=== PATIENT | male | born 1995 | race Caucasian/White ===

== ENCOUNTER 2019-12-24 03:48 | Emergency (ER) | payer SELFPAY ==
[2019-12-24] MEDS ORDERED: ONDANSETRON HCL INJ/PF 4 MG/2 ML SDV IV ONE (04:32)
[2019-12-24] MEDS ORDERED: NORMAL SALINE 1000 ML 1,000 ML IV PRN (04:32)
[2019-12-24 05:11] LABS: ABSOLUTE LYMPHOCYTES (AUTO) 0.5 10^3/uL (0.5-4.7); ABSOLUTE MONOCYTES (AUTO) 0.6 10^3/uL (0.1-1.4); ABSOLUTE NEUT (AUTO) 7.1 10^3/uL (1.7-8.2); BASOPHILS % (AUTO) 0.3 % (0-2); EOSINOPHILS % (AUTO) 0.1 % (0-6); HEMATOCRIT 45.8 % (37.9-51.0); HEMOGLOBIN 16.2 g/dL (13.5-17.0); MEAN CORPUSCULAR HEMOGLOBIN 30.3 pg (27.0-33.4); MEAN CORPUSCULAR HGB CONC 35.2 g/dL (32.0-36.0); MEAN CORPUSCULAR VOLUME 86 fl (80-97); MONOCYTES % (AUTO) 7.4 % (3-13); PLATELET COUNT 233 10^3/uL (150-450); RED BLOOD COUNT 5.33 10^6/uL (4.35-5.55); RED CELL DISTRIBUTION WIDTH 13.5 % (11.5-14.0); SEGMENTED NEUTROPHILS % (AUTO) 86.2 % (42-78); TOTAL CELLS COUNTED % (AUTO) 100 %; WHITE BLOOD COUNT 8.2 10^3/uL (4.0-10.5)
[2019-12-24 05:17] LABS: APPEARANCE,URINE CLEAR; BILIRUBIN,URINE NEGATIVE (NEGATIVE); COLOR,URINE YELLOW; GLUCOSE, URINE NEGATIVE (NEGATIVE); KETONES,URINE 20 mg/dL (NEGATIVE); LEUKOCYTE ESTERASE,URINE NEGATIVE (NEGATIVE); NITRITE,URINE NEGATIVE (NEGATIVE); PROTEIN,URINE NEGATIVE (NEGATIVE); URINE SPECIFIC GRAVITY 1.026; UROBILINOGEN,URINE NEGATIVE mg/dL (<2.0)
[2019-12-24] MEDS ORDERED: NORMAL SALINE 1000 ML 1,000 ML IV ONE ×2 (05:20→08:18)
[2019-12-24] MEDS ORDERED: KETOROLAC TROMETHAMINE INJ/PF 30 MG/1 ML SDV IV ONE (05:21)
--- NOTE | 2019-12-24 05:25 | ER Document Report ---
Entered by BHUMIKA GANDHI SCRIBE 12/24/19 0523 Acting as scribe for:EUN CLARKE IV, MD ED Medical Screen (RME) - General Chief Complaint: Abdominal Pain Stated Complaint: NAUSEA, VOMITING, DIARRHEA Mode of Arrival: Ambulatory Information source: Patient Notes: This 24 year old male patient with no significant past medical history presents to the ED today with complaints of nausea/vomiting/diarrhea with associated generalized abdominal pain for the past x3 days. Patient states that he had only x1 episode of emesis, but notes feeling nauseous since onset. He also reports difficulty sleeping due to the severe abdominal pain. Denies history of abdominal surgeries. Denies sick contacts. I have treated and performed a rapid initial assessment of this patient. A comprehensive ED assessment and evaluation of the patient, analysis of test results and completion of medical decision making process will be conducted by additional ED providers. - Related Data Allergies/Adverse Reactions: No Known Allergies Allergy (Unverified 12/24/19 04:12) Past Medical History - Social History Chew tobacco use (# tins/day): No Frequency of alcohol use: Rare Drug Abuse: None Physical Exam - Vital signs Vitals: Temp Pulse Resp BP Pulse Ox 100.1 F 115 H 20 139/68 H 97 12/24/19 03:55 12/24/19 03:55 12/24/19 03:55 12/24/19 03:55 12/24/19 03:55 - Abdominal Inspection: Normal Distension: No distension Bowel sounds: Normal Tenderness: Nontender - Abdomen soft Organomegaly: No organomegaly Course - Vital Signs Vital signs: Temp Pulse Resp BP Pulse Ox 100.1 F 115 H 20 139/68 H 97 12/24/19 03:55 12/24/19 03:55 12/24/19 03:55 12/24/19 03:55 12/24/19 03:55 - Laboratory Result Diagrams: 12/24/19 04:27 12/24/19 04:27 Laboratory results interpreted by me: 12/24/19 12/24/19 04:27 04:27 Lymph % (Auto) 6.0 L Seg Neutrophils % 86.2 H Urine Ketones 20 H Urine Blood MODERATE H I personally performed the services described in the documentation, reviewed and edited the documentation which was dictated to the scribe in my presence, and it accurately records my words and actions.
[2019-12-24 05:27] LABS: ALBUMIN 4.3 g/dL (3.5-5.0); ALKALINE PHOSPHATASE 44 U/L (38-126); ANION GAP 9 (5-19); ASPARTATE AMINO TRANSFERASE 62 U/L (17-59); BILIRUBIN,TOTAL 0.6 mg/dL (0.2-1.3); BLOOD UREA NITROGEN 11 mg/dL (7-20); CALCIUM 8.7 mg/dL (8.4-10.2); CARBON DIOXIDE 26 mmol/L (22-30); CHLORIDE 98 mmol/L (98-107); GLUCOSE 114 mg/dL (75-110); POTASSIUM 4.6 mmol/L (3.6-5.0); TOTAL PROTEIN 7.4 g/dL (6.3-8.2)
--- NOTE | 2019-12-24 06:43 | RADIOLOGY REPORT (SQ) ---
CT ABDOMEN AND PELVIS WITH INTRAVENOUS CONTRAST: 12/24/2019 5:40 AM CDT HISTORY: 24-year old with diffuse abdominal pain. COMPARISON: None available TECHNIQUE: Axial contiguous images were obtained from the lung bases to the proximal femurs with intravenous intravenous contrast administered. Sagittal and coronal reconstructions were also obtained and reviewed. This exam was performed according to our departmental dose-optimization program, which includes automated exposure control, adjustment of the mA and/or KV according to the patient's size and/or use of iterative reconstruction technique. FINDINGS: No focal consolidative airspace opacities are seen. No discrete pleural effusion is seen. The visualized hepatic parenchyma is unremarkable. No focal enhancing lesion is seen. The gallbladder demonstrates no evidence of calcified gallstones The spleen, pancreas, and adrenals are normal in size and contour. The kidneys demonstrate no evidence of hydronephrosis. No focal filling defect is seen within the visualized collecting systems or ureters. The left ureter is not well opacified with contrast. Bladder is minimally distended, but grossly appears unremarkable. The stomach is not well distended. The small bowel loops appear unremarkable. No pericolonic inflammatory stranding is seen. The appendix appears unremarkable. There is no evidence of pneumoperitoneum or free fluid. The aorta and IVC appear normal in size. No significantly enlarged lymph nodes are seen in the abdomen or pelvis. Review of the bone show no evidence of any suspicious lytic or blastic lesions. IMPRESSION: No acute process is seen within the abdomen or pelvis.
[2019-12-24] MEDS ORDERED: METOCLOPRAMIDE HCL INJ/PF 10 MG/2 ML SDV IV ONE (08:17)
[2019-12-24] MEDS ORDERED: MORPHINE SULFATE 10 MG/ML INJ IV ONE (08:17)
--- NOTE | 2019-12-24 08:25 | ER Document Report ---
ED General - General Chief Complaint: Abdominal Pain Stated Complaint: NAUSEA, VOMITING, DIARRHEA Mode of Arrival: Ambulatory - HPI Notes: Chief complaint: Right upper quadrant abdominal pain, nausea vomiting and diarrhea HPI: Previously healthy 24-year-old male initially seen overnight by Dr. Ann and transferred to care at 0600 hrs. This man complains of a 3-day history of symptoms as above. Also has had some low-grade fever. No respiratory symptoms. No known COVID exposure. Patient consumes occasional social alcohol. He denies any known history of gallbladder disease or hepatitis. Initial evaluation by Dr. Ann had shown patient to be afebrile here with on normal total WBC but a mild left shift. Lipase was normal. Comprehensive metabolic profile remarkable for mild elevation of both ALT and AST. CT of the abdomen with IV contrast had already been obtained by Dr. Ann and this is now been reported as showing no significant pathology per radiologist. Patient complains of ongoing epigastric and right upper quadrant pain. Non- radiated. Mild nausea without vomiting at this time. - Related Data Allergies/Adverse Reactions: No Known Allergies Allergy (Unverified 12/24/19 04:12) Past Medical History - General Information source: Patient - Social History Smoking Status: Never Smoker Chew tobacco use (# tins/day): No Frequency of alcohol use: Rare Drug Abuse: None Family History: Reviewed & Not Pertinent Patient has suicidal ideation: No Patient has homicidal ideation: No Review of Systems - Review of Systems Notes: Constitutional: As per HPI. HENT: Negative for sore throat. Eyes: Negative for visual changes. Cardiovascular: Negative for chest pain. Respiratory: Negative for shortness of breath. Gastrointestinal: As per HPI. Genitourinary: Negative for dysuria. Musculoskeletal: Negative for back pain. Skin: Negative for rash. Neurological: Negative for headaches, weakness or numbness. 10 point ROS negative except as marked above and in HPI. Physical Exam - Vital signs Vitals: Temp Pulse Resp BP Pulse Ox 100.1 F 115 H 20 139/68 H 97 12/24/19 03:55 12/24/19 03:55 12/24/19 03:55 12/24/19 03:55 12/24/19 03:55 - Notes Notes: GENERAL: Well-developed well-nourished appearing in mild to moderate pain. SKIN: Good turgor no rashes. HEAD: Normocephalic atraumatic. EYES: PERRLA. EOMI. Conjunctivae and sclerae clear. EARS: CANALS AND TMS CLEAR. NOSE: CLEAR. MOUTH: Moist mucosa. Good dentition. No stridor or edema. No drooling. NECK: Supple. No masses or thyromegaly. No adenopathy. Carotids 2+ without bruits. No JVD. BACK: Symmetrical without tenderness. CHEST: Respirations unlabored. Breath sounds clear and symmetrical. HEART: Regular rhythm. No murmur gallop or rub. ABDOMEN: Mild tenderness epigastrium and right upper quadrant. Soft without ma sses, organomegaly or rebound. Bowel sounds normally active. No bruits. GENITALIA: Deferred. EXTREMITIES: No edema. No calf tenderness. Cap refill less than 1.5 seconds. Dorsalis pedis and posterior tibial pulses 3+ and symmetrical. NEUROLOGICAL: GCS 15. Alert and oriented x3. Normal gait. Fluent speech. Cranial nerves II through XII intact. Sensorimotor and cerebellar normal. Normal tone. PSYCHIATRIC: Appropriate affect. Course - Re-evaluation Re-evalutation: 12/24/19 08:24 Patient will remain n.p.o. at this time. I requested a gallbladder ultrasound. And will give him some additional IV normal saline and a dose of morphine and Reglan. 12/24/19 09:37 Symptoms are controlled and patient's gallbladder ultrasound is been reported as normal per radiologist. I think this is viral gastroenteritis and we will discharge him home with symptomatic treatment and outpatient follow-up. Patient understands current findings and recommendations. - Vital Signs Vital signs: Temp Pulse Resp BP Pulse Ox 100.1 F 115 H 20 139/68 H 97 12/24/19 03:55 12/24/19 03:55 12/24/19 03:55 12/24/19 03:55 12/24/19 03:55 - Laboratory Result Diagrams: 12/24/19 04:27 12/24/19 04:27 Laboratory results interpreted by me: 12/24/19 12/24/19 12/24/19 04:27 04:27 04:27 Lymph % (Auto) 6.0 L Seg Neutrophils % 86.2 H Sodium 132.5 L Glucose 114 H AST 62 H ALT 78 H Urine Ketones 20 H Urine Blood MODERATE H - Diagnostic Test Radiology reviewed: Reports reviewed - Gallbladder ultrasound is normal per radiologist. Discharge - Discharge Clinical Impression: Acute gastroenteritis Condition: Stable Disposition: HOME, SELF-CARE Instructions: Abdominal Pain ([facility]), Gastroenteritis (adult) ([facility]) Prescriptions: Ondansetron [Zofran Odt 4 mg Tablet] 1 - 2 tab PO Q4H PRN #15 tab.rapdis PRN Reason: For Nausea/Vomiting Forms: Return to Work Referrals: [facility] [Provider Group] - Follow up as needed
--- NOTE | 2019-12-24 09:18 | RADIOLOGY REPORT (SQ) ---
EXAM DESCRIPTION: U/S ABDOMEN LIMITED W/O DOP IMAGES COMPLETED DATE/TIME: 12/24/2019 8:53 am REASON FOR STUDY: RUQ pain COMPARISON: None. TECHNIQUE: Dynamic and static grayscale images acquired of the abdomen and recorded on PACS. Additio nal selected color Doppler and spectral images recorded. LIMITATIONS: Some structures not well evaluated due to overlying bowel gas. . FINDINGS: PANCREAS: Limited due to bowel gas. LIVER: No masses. Echotexture normal. LIVER VASCULATURE: Normal directional flow of the main portal vein and hepatic veins. GALLBLADDER: No stones. Normal wall thickness. No pericholecystic fluid. ULTRASOUND-DETECTED FARNSWORTH'S SIGN: Negative. INTRAHEPATIC DUCTS AND COMMON DUCT: CBD and intrahepatic ducts normal caliber. No filling defects. INFERIOR VENA CAVA: Normal flow. AORTA: No aneurysm. RIGHT KIDNEY: Normal size measuring 10.4 cm Normal echogenicity. No solid or suspicious masses. No h ydronephrosis. No calcifications. PERITONEAL AND RIGHT PLEURAL SPACE: No ascites or effusions. OTHER: No other significant findings. IMPRESSION: Unremarkable right upper quadrant ultrasound as visualized. TECHNICAL DOCUMENTATION: JOB ID: [id number] 2010 [employer]- All Rights Reserved Reading location - IP/workstation name: [email or web address]
[2019-12-24 10:11] VITALS: BP 121/66
== END 2019-12-24 10:03 | disposition home or self-care (01) ==
LOC: ER 03:48
DX: K52.9 Noninfective gastroenteritis and colitis, unspecified (principal); R74.0 Nonspecific elevation of levels of transaminase and lactic acid dehydrogenase [LDH]
CPT/HCPCS: 99284; 96361; 96374; 96375; 36415; 83690; 85025; 80053; 81001; 76705; 74177; J1885; J2765; J2270; J2405; J7030